=== PATIENT | female | born 1960 | race Caucasian/White ===

== ENCOUNTER 2021-05-09 14:40 | Outpatient (CLI) | payer MEDICARE ==
[2021-05-09 14:30] VITALS: BP 125/79
[2021-05-09] MEDS: FAMOTIDINE 20 MG TABLET PO SCH (17:00)
[2021-05-09] MEDS ORDERED: ONDANSETRON HCL 4 MG TABLET PO PRN (17:00)
[2021-05-09] MEDS: MetFORMIN HCL 500 MG TABLET PO SCH (17:09)
[2021-05-09 17:11] LABS: GLUCOMETER DEV NAME(LOC) CSU.; GLUCOSE,POINT OF CARE 286 MG/DL (70-110)
[2021-05-09 17:11] LABS: GLUCOMETER DEV NAME(LOC) POC.BV
[2021-05-09 19:18] VITALS: BP 121/75
[2021-05-09 21:00] VITALS: BP 116/72
[2021-05-09] MEDS ORDERED: RisperiDONE 3 MG TABLET PO SCH (21:00)
[2021-05-09] MEDS ORDERED: ClonazePAM 1 MG TABLET PO SCH (21:00)
[2021-05-10 06:36] LABS: GLUCOMETER DEV NAME(LOC) CSU.; GLUCOSE,POINT OF CARE 118 MG/DL (70-110)
[2021-05-10] MEDS: MetFORMIN HCL 500 MG TABLET PO SCH (06:49)
[2021-05-10 07:58] VITALS: BP 104/68
[2021-05-10 08:01] VITALS: BP 104/68
[2021-05-10] MEDS: FAMOTIDINE 20 MG TABLET PO SCH (08:39)
[2021-05-10] MEDS ORDERED: ATORVASTATIN CALCIUM 20 MG TABLET PO SCH (09:00)
[2021-05-10] MEDS ORDERED: AmLODIPine BESYLATE 10 MG TABLET PO SCH (09:00)
[2021-05-10] MEDS ORDERED: SERTRALINE HCL 100 MG TABLET PO SCH (09:00)
[2021-05-10] MEDS ORDERED: DILTIAZEM HCL CD 120 MG ER CAPSULE PO SCH (09:00)
== END 2021-05-10 09:25 | disposition home or self-care (01) ==
LOC: CSU 14:40
PROVIDERS: ATTEND Psychiatry & Neurology Psychiatry
DX: F20.9 Schizophrenia, unspecified (principal); F39 Unspecified mood [affective] disorder; F41.9 Anxiety disorder, unspecified; Z20.822 Contact with and (suspected) exposure to COVID-19; J45.909 Unspecified asthma, uncomplicated; I10 Essential (primary) hypertension; E11.9 Type 2 diabetes mellitus without complications; E78.5 Hyperlipidemia, unspecified; Z88.8 Allergy status to other drugs, medicaments and biological substances
CPT/HCPCS: 82962; 87426; 90792; Q0162